=== PATIENT | female | born 1965 | race Caucasian/White ===

== ENCOUNTER → 2017-01-17 | Outpatient (CLI) | payer BC ==
[2015-01-09 22:00] VITALS: BP 156/90
[~2017-01-17] MED LIST: AMLO10TA2 PO; ASPI325T8 PO; ATOR20TA58 PO; BYSTOLIC5 MG PO; CARV3.12 PO; HYDR12.58 PO; LABE100T3 PO; LABE200T2 PO; LOSA100T6 PO; LOSA50TA6 PO; NIFE30TA17 PO; OMEP40CA5 PO; SIMV20TA3 PO
--- NOTE | 2017-01-17 15:56 | CARD ---
APPROVED REPORT EXAM: Two-dimensional and M-mode echocardiogram with Doppler and color Doppler. Other Information Quality : GoodHR: 66bpm Rhythm : NSR INDICATION Hypertension/HCVD RISK FACTORS Obesity Hyperlipidemia Smoking 2D DIMENSIONS RVDd3.3 (2.9-3.5cm)Left Atrium(2D)3.8 (1.6-4.0cm) IVSd1.2 (0.7-1.1cm)Aortic Root(2D)3.4 (2.0-3.7cm) LVDd5.3 (3.9-5.9cm)LVOT Diameter2.4 (1.8-2.4cm) PWd1.3 (0.7-1.1cm)LVDs3.3 (2.5-4.0cm) FS (%) 38.5 %SV92.7 ml LVEF(%)68.3 (>50%) Aortic Valve AoV Peak Remi.166.1cm/sAoV VTI35.0cm AO Peak GR.11.0mmHgLVOT Peak Remi.124.7cm/s AO Mean GR.5mmHgAVA (VMAX)3.43cm2 Mitral Valve MV E Pvtdhyvk002.0cm/sMV E Peak Gr.9mmHg MV DECEL [id number] A Eicdnxet14.3cm/s MV E Mean Gr.3mmHgE/A Ratio1.4 MV A Pmxacsuh050iw Pulmonary Valve PV Peak Elvqzurx535.4cm/s Pulmonary Vein S1 Pjpcaknr68.9cm/sD2 Dsfvetnf32.7cm/s PVa grbipyid83rzbw LEFT VENTRICLE The left ventricle is normal size. There is mild concentric left ventricular hypertrophy. The left ve ntricular systolic function is normal. The Ejection Fraction is 60-65%. There is normal LV segmental wall motion. The left ventricular diastolic function and filling is normal for age. RIGHT VENTRICLE The right ventricle is normal size. There is normal right ventricular wall thickness. The right ventr icular systolic function is normal. ATRIA The left atrium size is normal. The right atrium size is normal. The interatrial septum is intact wit h no evidence for an atrial septal defect or patent foramen ovale as noted on 2-D or Doppler imaging. AORTIC VALVE The aortic valve is not well visualized but appears mildly calcified and opens adequately. Doppler an d Color Flow revealed no significant aortic regurgitation. There is no significant aortic valvular st enosis. MITRAL VALVE Mitral annular calcification is mild. The mitral valve leaflets are thickened. There is no evidence o f mitral valve prolapse. There is no mitral valve stenosis. Doppler and Color Flow revealed no mitral valve regurgitation noted. TRICUSPID VALVE Doppler and Color Flow revealed trace tricuspid regurgitation. The pulmonary artery systolic pressure is estimated at 20 mmHg. There is no pulmonary hypertension. PULMONIC VALVE The pulmonary valve is not well visualized but appears to open adequately. Doppler and Color Flow rev ealed no pulmonic valvular regurgitation. There is no pulmonic valvular stenosis by spectral Doppler. GREAT VESSELS The aortic root is normal in size. The ascending aorta is normal in size. The pulmonary artery is nor mal. The IVC is normal in size and collapses >50% with inspiration. PERICARDIAL EFFUSION There is no evidence of significant pericardial effusion. Critical Notification Critical Value: No <Conclusion> The left ventricular systolic function is normal. The Ejection Fraction is 60-65%. There is normal LV segmental wall motion. Trace tricuspid regurgitation. The pulmonary artery systolic pressure is estimated at 20 mmHg. There is no evidence of significant pericardial effusion.
== END | disposition home or self-care (01) ==
LOC: ECHO 10:32
PROVIDERS: ATTEND Internal Medicine Cardiovascular Disease
DX: I11.9 Hypertensive heart disease without heart failure (principal); E78.5 Hyperlipidemia, unspecified
CPT/HCPCS: 93306

== ENCOUNTER 2017-04-03 07:34 | Day surgery (SDC) | payer BC ==
[~2017-04-03] VITALS: Ht 163.8 cm; Wt 131.5 kg
[~2017-04-03 07:34] MED LIST changes: +HYDROmorphone 2 MG/ML VIAL IV PRN; +IV RINGERS,LACTATED 1000ML 1,000 ML IV SCH; +LIDOCAINE 1% PF 2 ML VIAL. ID PRN; +ONDANSETRON PF 4 MG/2 ML VIAL. IV PRN; +PROCHLORPERAZINE 10 MG/2 ML VIAL. IV PRN; +fentaNYL PF VIAL 100 MCG/2 ML VIAL IV PRN
[2017-04-03] MEDS ORDERED: HEPARIN PF for SUB-Q USE 5,000 UNIT/0.5 ML VIAL. SQ ONE (08:15)
[2017-04-03] MEDS ORDERED: DEXAMETHASONE SOD PHOS 20 MG/5 ML VIAL. ONE (08:20)
[2017-04-03] MEDS ORDERED: ONDANSETRON PF 4 MG/2 ML VIAL. ONE (08:20)
[2017-04-03] MEDS ORDERED: LIDOCAINE 2% PF Vial for OR 5 ML VIAL. ONE ×2 (08:20→09:42)
[2017-04-03] MEDS ORDERED: PROPOFOL 20 ML IV ONE ×2 (08:20→10:00)
[2017-04-03] MEDS ORDERED: KETOROLAC 30 MG/ML INJ FOR OR. INJ ONE (08:20)
[2017-04-03] MEDS ORDERED: MIDAZOLAM HCL/PF 2 MG/2 ML VIAL. ONE (09:00)
[2017-04-03] MEDS ORDERED: OXYTOCIN 10 UNIT/ML VIAL. ONE (09:02)
[2017-04-03] MEDS ORDERED: SILVER NITRATE STICK TP ONE (09:03)
[2017-04-03] MEDS ORDERED: VASOPRESSIN 20 UNIT/ML VIAL. ONE (09:03)
[2017-04-03] MEDS ORDERED: METHYLERGONOVINE MALEATE 0.2 MG/ML VIAL. IM ONE (09:03)
[2017-04-03] MEDS ORDERED: KETAMINE HCL 500 MG/10 ML VIAL. ONE (09:27)
[2017-04-03] MEDS ORDERED: GLYCOPYRROLATE 1 MG/5 ML VIAL. ONE (09:31)
--- NOTE | 2017-04-03 10:13 | PDOC ---
BRIEF OPERATIVE NOTE Date: Apr 03, 2017 Pre-Op Diagnosis endometrial thickening, morbid obesity, menses irregular Post-Op Diagnosis same with abundant tissue Procedure Performed Hysteroscopy D&C Surgeon Dr. Poppy Levin Anesthesiologist Dr. Carreno Anesthesia Type: General Blood Loss 10cc IV Fluid see anesthesia records Urine Output straight cath prior to procedure Specimens Obtained endometrial currettings Findings thick abundant tissue, possible polyps on anterior uterine wall Complications none Operative Note [id number] POPPY LEVIN MD Apr 03, 2017 10:13
[2017-04-03] MEDS ORDERED: MAG HYDROX/ALUMINUM HYD/SIMETH 30 ML ORAL.SUSP PO PRN (10:15)
[2017-04-03] MEDS ORDERED: CALCIUM CARBONATE 500 MG TAB.CHEW PO PRN (10:15)
[2017-04-03] MEDS ORDERED: 0.9 % SODIUM CHLORIDE 10 ML DISP.SYRIN. IV PRN (10:15)
[2017-04-03] MEDS ORDERED: diphenhydrAMINE HCL 25 MG CAPSULE PO PRN (10:15)
[2017-04-03] MEDS ORDERED: SIMETHICONE 80 MG TAB.CHEW PO PRN (10:15)
[2017-04-03] MEDS ORDERED: diphenhydrAMINE 50 MG/ML VIAL IV PRN (10:15)
[2017-04-03] MEDS ORDERED: HYDROcodone/APAP 5/325MG 1 TAB TABLET PO PRN (10:15)
[2017-04-03] MEDS ORDERED: NALOXONE 0.4 MG/ML VIAL. IV PRN (10:15)
[2017-04-03] MEDS ORDERED: MORPHINE SULFATE 2 MG/ML DISP.SYRIN. ONE (10:20)
[2017-04-03] MEDS: MORPHINE SULFATE 2 MG/ML DISP.SYRIN. IV PRN ×2 (10:22→10:33)
--- NOTE | 2017-04-03 10:38 | OP ---
DATE OF SURGERY: 04/03/2017 PREOPERATIVE DIAGNOSES: Endometrial thickening on sonogram, perimenopausal with irregular bleeding and morbid obesity. POSTOPERATIVE DIAGNOSES: Endometrial thickening on sonogram, perimenopausal with irregular bleeding and morbid obesity. PROCEDURE: Dilation and curettage with hysteroscopy before. SURGEON: Dayanara Levin MD. DRILLING SUPERVISOR: OR personnel. ANESTHESIA: General. ANESTHESIOLOGIST: Dr. Carreno. ESTIMATED BLOOD LOSS: 10 mL. URINE OUTPUT: With a straight cath prior to procedure. IV FLUIDS: Please see anesthesia records. SPECIMEN: Endometrial curettings. FINDINGS: With a uterus sounded to 9 cm and thick abundant tissue, possible polyps with red thickening on the anterior uterine wall. COMPLICATIONS: None. DESCRIPTION OF PROCEDURE: This patient was taken to the operating room where general anesthesia was placed. The patient was placed in dorsal lithotomy position in Tigre stirrups. The patient's vagina was prepped and draped in the normal sterile fashion, and a straight cath urine was done prior to starting. After a timeout was performed, a weighted speculum was placed in the patient's vagina. A single tooth tenaculum was used to grasp the anterior lip of the cervix. The Collin dilators were used to dilate up to a 16-17. She sounded to 9 cm. The 5 mm diagnostic hysteroscope was performed with the above findings. I went in with polyp forceps first, and I was able to get 4 or 5 large cystic tissue out first, then I went in with a medium sized curette and curetted around. The sides in the back were pretty gritty, but the anterior wall was still thick, and I did get an abundant amount of tissue out after scraping that, but I went in again with the polyp forceps first and got two or three large chunks of tissue out before even the curette. After I did that, I did put the scope back in to make sure it looked better, and it did look better, not completely gone, but definite improvement and an abundant amount of tissue for diagnostic purposes. Once this was done, the tenaculum was removed. There was no bleeding from the tenaculum sites, and a sponge stick was used to clear up the vagina, and the weighted speculum was removed. DAYANARA LEVIN MD DR: MARY/karina JOB#: [id number] / [id number]
[2017-04-03 11:15] VITALS: BP 125/71
--- NOTE | 2017-04-07 16:46 | PATHOLOGY ---
PATHOLOGY REPORT * * * * * * * * FINAL DIAGNOSIS: Endometrial curettings: - EXTENSIVE ATYPICAL HYPERPLASIA WITH FOCI CONSISTENT WITH FIGO GRADE I ENDOMETRIOID ADENOCARCINOMA. SEE COMMENT. COMMENT: Sections of the endometrial curettings show extensive atypical endometrial hyperplasia which predominantly appear to be occurring within polyps. In addition, there are foci showing apparent back to back atypical glands consistent with FIGO grade I endometrioid adenocarcinoma. The case is also examined by Dr. Rudy Sepulveda, who has a specialty interest in [employer] pathology. He concurs with the diagnosis. The results are reported to Dr. Leung on 04/07/17 at 4:00 p.m. (JPM:mgr; 04/07/2017) REPORT ELECTRONICALLY SIGNED BY: Espinoza Salgado M.D. DATE/TIME: 04/07/2017 16:46 * * * * * * * * GROSS PATHOLOGY: The specimen is received in formalin labeled "Yoav Neri, endometrial curettings". Received is a moderate amount of blood coagulum admixed with pale eng soft tissue measuring 5.8 x 3.9 x 1.5 cm in aggregate dimensions. The specimen is filtered and entirely submitted in cassettes A1 through A9. (CAA; 04/04/2017) INITIAL CPT CODE(S): A; 46010 Professional services [place] [address] Technical services performed by [facility] at [address] [place] [address], [facility] [address] [address]. SPECIMEN(S) RECEIVED: A.Endometrial curettings CLINICAL HISTORY: Endometrial thickening PATIENT: YOAV NERI /AGE: 307/18/1965 (Age: 51) PATIENT #: [id number] ALT CASE #: SPECIMEN COLLECTION DATE: 04/03/2017 SPECIMEN RECEIVED DATE: 04/03/2017 [facility] - [address] [place] [address] - PHONE: [phone] * * * END OF REPORT * * *
== END 2017-04-03 11:23 | disposition home or self-care (01) ==
LOC: SURG 07:34
PROVIDERS: ATTEND Obstetrics & Gynecology
DX: N85.02 Endometrial intraepithelial neoplasia [EIN] (principal); N92.4 Excessive bleeding in the premenopausal period; I11.9 Hypertensive heart disease without heart failure; E78.5 Hyperlipidemia, unspecified; E66.01 Morbid (severe) obesity due to excess calories
CPT/HCPCS: 58558; J1100; J2250; J2270; J2405; J2590; J2704; J3490; J7030; J1885; J2210; J2001

== ENCOUNTER → 2018-03-31 | Outpatient (CLI) | payer BC, OTHER ==
[~2018-03-31] MED LIST changes: -AMLO10TA2 PO; +AMLO10TA6 PO; -HYDROmorphone 2 MG/ML VIAL IV PRN; -IV RINGERS,LACTATED 1000ML 1,000 ML IV SCH; -LABE100T3 PO; +LABE100T5 PO; -LABE200T2 PO; +LABE200T4 PO; -LIDOCAINE 1% PF 2 ML VIAL. ID PRN; +LOSA-73 PO; +LOSA100T14 PO; -LOSA100T6 PO; -LOSA50TA6 PO; -ONDANSETRON PF 4 MG/2 ML VIAL. IV PRN; -PROCHLORPERAZINE 10 MG/2 ML VIAL. IV PRN; -fentaNYL PF VIAL 100 MCG/2 ML VIAL IV PRN
--- NOTE | 2018-03-31 10:02 | RAD ---
CT abdomen pelvis without contrast 03/31/2018 Clinical indication: Hematuria. COMPARISON: MRI abdomen 11/29/2014 TECHNIQUE: Multiple CT images of the abdomen and pelvis were obtained without contrast. *One or more of the following individualized dose reduction techniques were utilized for this examination: 1. Automated exposure control. 2. Adjustment of the mA and/or kV according to patient size. 3. Use of iterative reconstruction technique. FINDINGS: Heart size is normal. There is a 0.3 cm non-calcified nodule in the right middle lobe series 2/image 2. Evaluation of the solid abdominal pelvic viscera, lymphadenopathy, vasculature is limited in the absence of intravenous contrast. The unenhanced contours of the liver, spleen, gallbladder, adrenal glands and pancreas are grossly unremarkable. Both kidneys present without hydronephrosis. Punctate calcification in the right renal gaby is favored to be vascular. No definite right nephrolithiasis. There are few nonobstructive left nephrolithiasis, the largest in the inferior pole measuring 4 mm. Abdominal aorta is normal in caliber with mild aortoiliac calcified plaque. Small and large bowel loops are normal in caliber without obstruction. Appendix is normal in appearance. No abdominal free fluid. No pneumoperitoneum. Leftward spinal curvature. Mild bilateral hip osteoarthritis. At L5-S1, posterior disc osteophyte complex resulting in at least mild spinal canal narrowing. IMPRESSION: 1. Nonobstructive left nephrolithiasis. 2. Small, 0.3 cm, right middle lobe noncalcified pulmonary nodule, indeterminate. CT chest without contrast is recommended for further evaluation. Electronically signed by: Germán Oh MD (03/31/2018 9:58 AM) [id number]
== END | disposition home or self-care (01) ==
LOC: CT 07:52
PROVIDERS: ATTEND Family Medicine
DX: N20.0 Calculus of kidney (principal); M16.0 Bilateral primary osteoarthritis of hip; M25.78 Osteophyte, vertebrae; M48.07 Spinal stenosis, lumbosacral region; M43.8X6 Other specified deforming dorsopathies, lumbar region
CPT/HCPCS: 74176

== ENCOUNTER → 2018-12-14 | Outpatient (CLI) | payer OTHER ==
[~2018-12-14] MED LIST changes: -AMLO10TA6 PO; +AMLO10TA8 PO
--- NOTE | 2018-12-14 14:50 | CARD ---
MR#: [id number] Date of Study: 12/14/2018 Ordering Physician: MATTI DE LA PAZ, Referring Physician: MATTI DE LA PAZ Tech: Mandy Carter RDCS APPROVED REPORT EXAM: Two-dimensional and M-mode echocardiogram with Doppler and color Doppler. Other Information Quality : Technically LimitedHR: 65bpm Rhythm : NSRTechnically limited study due to body habitus and smoking. INDICATION Congestive Heart Failure 2D DIMENSIONS RVDd3.7 (2.9-3.5cm)Left Atrium(2D)4.3 (1.6-4.0cm) IVSd1.3 (0.7-1.1cm)Aortic Root(2D)3.4 (2.0-3.7cm) LVDd4.9 (3.9-5.9cm)LVOT Diameter2.2 (1.8-2.4cm) PWd1.2 (0.7-1.1cm)LVDs3.5 (2.5-4.0cm) FS (%) 28.3 %SV62.3 ml LVEF(%)54.5 (>50%) M-Mode DIMENSIONS Left Atrium(MM)4.00 (2.5-4.0cm)Aortic Root2.97 (2.2-3.7cm) Aortic Valve AoV Peak Remi.166.7cm/sAoV VTI35.5cm AO Peak GR.11.1mmHgLVOT Peak Remi.91.5cm/s AO Mean GR.5mmHgAVA (VMAX)2.10cm2 KEITH (VTI)2.20cm2 Mitral Valve MV E Qjpueozr00.0cm/sMV DECEL TOOU384hd MV A Kawokktk72.6cm/sE/A Ratio1.1 Tricuspid Valve TR P. Iwaaadww480nj/sRAP MRATNAMC5jsIm TR Peak Gr.19fmJrJRWH59rcIu LEFT VENTRICLE The left ventricle is normal size. There is mild concentric left ventricular hypertrophy. The left ve ntricular systolic function is normal. The Ejection Fraction is 55-60%. There is normal LV segmental wall motion. RIGHT VENTRICLE The right ventricle is normal size. There is normal right ventricular wall thickness. The right ventr icular systolic function is normal. ATRIA The left atrium is mildly dilated. The right atrium size is normal. The interatrial septum is intact with no evidence for an atrial septal defect or patent foramen ovale as noted on 2-D or Doppler imagi ng. AORTIC VALVE The aortic valve is probably trileaflet. The aortic valve is not well visualized. Doppler and Color F low revealed no significant aortic regurgitation. There is no significant aortic valvular stenosis. MITRAL VALVE The mitral valve is normal in structure and function. There is no evidence of mitral valve prolapse. There is no mitral valve stenosis. Doppler and Color-flow revealed trace mitral regurgitation. TRICUSPID VALVE The tricuspid valve is normal in structure and function. Doppler and Color Flow revealed trace tricus pid regurgitation. The PA pressure was estimated at 30 mmHg. There is no tricuspid valve prolapse or vegetation. There is no tricuspid valve stenosis. PULMONIC VALVE The pulmonic valve is not well visualized. GREAT VESSELS The aortic root is normal in size. The ascending aorta is normal in size. The IVC is normal in size a nd collapses >50% with inspiration. PERICARDIAL EFFUSION There is no evidence of significant pericardial effusion. Critical Notification Critical Value: No <Conclusion> The left ventricular systolic function is normal. The Ejection Fraction is 55-60%. There is normal LV segmental wall motion. The left atrium is mildly dilated. Trace mitral regurgitation. Trace tricuspid regurgitation. The PA pressure was estimated at 30 mmHg. There is no evidence of significant pericardial effusion. Signed by : Matti De La Paz, Electronically Approved : 12/14/2018 14:49:47
== END | disposition home or self-care (01) ==
LOC: ECHO 13:52
PROVIDERS: ATTEND Internal Medicine Cardiovascular Disease
DX: I11.0 Hypertensive heart disease with heart failure (principal); I50.32 Chronic diastolic (congestive) heart failure; F17.210 Nicotine dependence, cigarettes, uncomplicated
CPT/HCPCS: 93306

== ENCOUNTER → 2019-04-09 | Outpatient (CLI) | payer OTHER ==
[~2019-04-09] MED LIST changes: +OMEP40CA45 PO; -OMEP40CA5 PO; +SIMV20TA18 PO; -SIMV20TA3 PO
--- NOTE | 2019-04-10 11:35 | RAD ---
PA and lateral chest. HISTORY: Endometrial adenocarcinoma PA and lateral views were taken of the chest. Lungs are free of infiltrates. Heart is normal in size. There is no effusion. A pulmonary nodules not identified. IMPRESSION: 1. No acute chest disease. Electronically signed by: Jonathan Albert MD (04/10/2019 11:32 AM) [facility] [place]
== END | disposition home or self-care (01) ==
LOC: RAD 14:16
PROVIDERS: ATTEND Nurse Practitioner Women's Health
DX: C54.1 Malignant neoplasm of endometrium (principal); F17.200 Nicotine dependence, unspecified, uncomplicated; I11.0 Hypertensive heart disease with heart failure; I50.9 Heart failure, unspecified; K21.9 Gastro-esophageal reflux disease without esophagitis
CPT/HCPCS: 71046

== ENCOUNTER → 2019-06-04 | Outpatient (CLI) | payer OTHER ==
[~2019-06-04] MED LIST changes: -NIFE30TA17 PO; +NIFE30TA95 PO
--- NOTE | 2019-06-04 17:34 | RAD ---
EXAM: Left knee, 3 views. HISTORY: Pain. COMPARISON: None. FINDINGS: 3 views of the left knee are obtained. There is mild medial compartment joint space narrowing. There is no fracture, dislocation or subluxation. There is enthesopathy along the patella. There is trace joint fluid. 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 No acute osseous finding. Electronically signed by: Yudy Key MD (06/04/2019 5:31 PM) [facility] [place]
== END | disposition home or self-care (01) ==
LOC: RAD 14:22
PROVIDERS: ATTEND Physician Assistant Medical
DX: M17.12 Unilateral primary osteoarthritis, left knee (principal); M76.892 Other specified enthesopathies of left lower limb, excluding foot; M25.862 Other specified joint disorders, left knee
CPT/HCPCS: 73562

== ENCOUNTER → 2019-06-11 | Outpatient (CLI) | payer OTHER ==
--- NOTE | 2019-06-11 11:42 | KCIC ---
MRI left knee without contrast dated 06/11/2019. No comparison available. CLINICAL INDICATION: Left knee pain. TECHNIQUE: Routine multiplanar normal testicles MR imaging of the left knee performed. No contrast administered. FINDINGS: There is mild tricompartmental hypertrophic change. Mild thinning and surface irregularity of the articular cartilage throughout. Near full-thickness cartilage loss at the patellar apex and medial patellar facet and medial femoral trochlea. No definite full-thickness defect of the medial or lateral compartment cartilage. Small joint effusion. No intra-articular loose body. No significant popliteal cyst. Anterior cruciate and posterior cruciate ligaments intact. Medial and lateral collateral complexes intact. Iliotibial band, popliteus tendon and pes anserine complex within normal limits. Quadriceps and patellar tendon are intact. No abnormality of the medial or lateral retinaculum. There is mild patchy superficial infrapatellar edema, nonspecific. There is a focal radial tear at the posterior horn of medial meniscus with some extension to the meniscal root. The anterior horn and body are intact. There is minimal blunting of the free edge of the lateral meniscal body seen on one coronal slice. Anterior horn and posterior horn are intact. IMPRESSION: 1. Complex tear posterior horn and root of medial meniscus. 2. There is a small free edge radial tear at the lateral meniscal body. 3. Mild tricompartmental degenerative arthrosis and chondromalacia. There are areas of near full-thickness cartilage loss at the anterior compartment. 4. Small joint effusion. Electronically signed by: Guido Sanchez MD (06/11/2019 11:39 AM) [facility]
== END | disposition home or self-care (01) ==
LOC: KCIC MRI 10:37
PROVIDERS: ATTEND Physician Assistant Medical
DX: S83.232A Complex tear of medial meniscus, current injury, left knee, initial encounter (principal); S83.282A Other tear of lateral meniscus, current injury, left knee, initial encounter; M94.262 Chondromalacia, left knee; M17.12 Unilateral primary osteoarthritis, left knee; M25.462 Effusion, left knee; Z90.710 Acquired absence of both cervix and uterus; X58.XXXA Exposure to other specified factors, initial encounter; Y93.89 Activity, other specified; Y92.89 Other specified places as the place of occurrence of the external cause; Y99.8 Other external cause status
CPT/HCPCS: 73721

== ENCOUNTER → 2020-02-11 | Outpatient (CLI) | payer OTHER ==
[~2020-02-11] MED LIST changes: +AMLO-187 PO; -AMLO10TA8 PO
--- NOTE | 2020-02-11 11:40 | CARD ---
MR#: [id number] Date of Study: 02/11/2020 Ordering Physician: MATTI GUTHRIE, Referring Physician: MATTI GUTHRIE, Tech: Ana Thomas APPROVED REPORT EXAM: Two-dimensional and M-mode echocardiogram with Doppler and color Doppler. Other Information Quality : AverageHR: 68bpm INDICATION Congestive Heart Failure RISK FACTORS Hypertension Hyperlipidemia Smoking Asthma 2D DIMENSIONS RVDd3.5 (2.9-3.5cm)Left Atrium(2D)3.9 (1.6-4.0cm) IVSd1.2 (0.7-1.1cm)Aortic Root(2D)3.4 (2.0-3.7cm) LVDd5.8 (3.9-5.9cm)LVOT Diameter2.1 (1.8-2.4cm) PWd1.2 (0.7-1.1cm)LVDs3.3 (2.5-4.0cm) FS (%) 43.9 %SV125.4 ml Aortic Valve AoV Peak Remi.169.5cm/sAoV VTI32.3cm AO Peak GR.11.5mmHgLVOT Peak Remi.138.1cm/s LVOT VTI 32.24cmAO Mean GR.6mmHg KEITH (VMAX)2.04je8IBK (VTI)3.59cm2 Mitral Valve MV E Zsofuhhf71.2cm/sMV DECEL RBDL661lz MV A Whpmdwmo64.3cm/sMV E Mean Gr.2mmHg MV TMA70gnM/A Ratio0.9 MVA (PHT)3.00cm2 TDI E/Lateral E'14.7E/Medial E'14.9 Pulmonary Valve PV Peak Yaddmwys558.9cm/sPV Peak Grad.4mmHg Tricuspid Valve TR P. Rxaivewl035bj/sRAP RMRBRAMZ1xgHu TR Peak Gr.45wkBiHQVS66rvLs Pulmonary Vein S1 Zdhmjxzc53.2cm/sD2 Cgafqnct19.2cm/s PVa gavggmwl844juzy LEFT VENTRICLE The left ventricle is normal size. There is mild concentric left ventricular hypertrophy. The left ve ntricular systolic function is normal and the ejection fraction is within normal range. The Ejection Fraction is 55-60%. There is normal LV segmental wall motion. Transmitral Doppler flow pattern is Gra de I-abnormal relaxation pattern. RIGHT VENTRICLE The right ventricle is normal size. There is normal right ventricular wall thickness. The right ventr icular systolic function is normal. ATRIA The left atrium is mildly dilated. The right atrium is borderline dilated. The interatrial septum is intact with no evidence for an atrial septal defect or patent foramen ovale as noted on 2-D or Dopple r imaging. AORTIC VALVE The aortic valve is normal in structure and function. Doppler and Color Flow revealed trace aortic re gurgitation. There is no significant aortic valvular stenosis. MITRAL VALVE The mitral valve is thickened but opens well. There is no evidence of mitral valve prolapse. There is no mitral valve stenosis. Doppler and Color-flow revealed trace mitral regurgitation. TRICUSPID VALVE The tricuspid valve is normal in structure and function. Doppler and Color Flow revealed trace tricus pid regurgitation with an estimated PAP of 27 mmHg. There is no tricuspid valve stenosis. PULMONIC VALVE The pulmonic valve is not well visualized. Doppler and Color Flow revealed trace to mild pulmonic gayla vular regurgitation. GREAT VESSELS The aortic root is normal in size. The IVC is dilated. PERICARDIAL EFFUSION There is no evidence of significant pericardial effusion. Critical Notification Critical Value: No <Conclusion> The left ventricle is normal size. The left ventricular systolic function is normal and the ejection fraction is within normal range. The Ejection Fraction is 55-60%. There is mild concentric left ventricular hypertrophy. Doppler and Color Flow revealed trace aortic regurgitation. There is no significant aortic valvular stenosis. Doppler and Color-flow revealed trace mitral regurgitation. Doppler and Color Flow revealed trace tricuspid regurgitation with an estimated PAP of 27 mmHg. Signed by : Abiel Garcia MD Electronically Approved : 02/11/2020 11:39:52
== END ==
LOC: ECHO 08:35
PROVIDERS: ATTEND Internal Medicine Cardiovascular Disease
DX: I37.1 Nonrheumatic pulmonary valve insufficiency (principal); I51.7 Cardiomegaly; I50.32 Chronic diastolic (congestive) heart failure
CPT/HCPCS: 93306

== ENCOUNTER → 2020-04-24 | Outpatient (CLI) | payer OTHER ==
--- NOTE | 2020-04-24 13:40 | RAD ---
XR CHEST 2V INDICATION: Reason: HISTORY OF ENDOMETRIAL ADENOCARCINOMA / Spl. Instructions: / History: . COMPARISON STUDY: None. FINDINGS: Lungs: Normal lung volume. No pulmonary mass or consolidation. The tracheobronchial tree and hilar st ructures are normal. Pleura: No pleural effusion or pneumothorax. Heart and Mediastinum: The cardiomediastinal silhouette is normal. Tortuosity of the thoracic aorta. Bones and Soft Tissues: The bones and soft tissues are within normal limits. IMPRESSION: No acute cardiopulmonary process. Electronically signed by: Isaak Hernandez MD (04/24/2020 1:37 PM) [id number]
== END ==
LOC: RAD 10:19
PROVIDERS: ATTEND Obstetrics & Gynecology
DX: C54.1 Malignant neoplasm of endometrium (principal)
CPT/HCPCS: 71046